=== PATIENT | male | born 1985 | race African-American/Black ===

== ENCOUNTER 2024-05-25 18:15 | Emergency (ER) | payer MEDICAID ==
[~2024-05-25] VITALS: Ht 175.3 cm; Wt 59.9 kg
[2024-05-25] MEDS: KETOROLAC TROMETHAMINE 15 MG/ML VIAL IM ONE (20:00)
[2024-05-25] MEDS ORDERED: KETOROLAC TROMETHAMINE 15 MG/ML VIAL ONE (20:04)
[2024-05-25] MEDS ORDERED: IBUP-1490 PO (20:30)
[2024-05-25 20:47] VITALS: BP 110/70; TEMP 97.9; O2SAT 99
== END 2024-05-25 20:48 | disposition home or self-care (01) ==
LOC: ER 18:34
DX: M79.642 Pain in left hand (principal); M79.641 Pain in right hand; W22.8XXA Striking against or struck by other objects, initial encounter; Y93.89 Activity, other specified; Y92.89 Other specified places as the place of occurrence of the external cause; Y99.8 Other external cause status
CPT/HCPCS: 99284; 96372; 73080; 73130 ×2; 73110 ×2; J1885